=== PATIENT | female | born 1990 | race Caucasian/White ===

== ENCOUNTER 2016-10-27 22:15 | Observation (INO) | payer MEDICARE ==
[~2016-10-27 22:15] MED LIST: FERR324T20 PO
[2016-10-27] MEDS ORDERED: AMPICILLIN 2,000 MG VIAL ONE (23:19)
== END 2016-10-27 22:23 | disposition left against medical advice (07) ==
LOC: MLD 22:15
PROVIDERS: ADMIT Obstetrics & Gynecology; ATTEND Obstetrics & Gynecology
DX: M54.9 Dorsalgia, unspecified (principal)
CPT/HCPCS: G0378; J0290

== ENCOUNTER 2016-11-26 22:38 | Emergency (ER) | payer MEDICARE ==
[~2016-11-26] VITALS: Ht 162.6 cm; Wt 116.6 kg
[2016-11-26 22:47] VITALS: BP 134/90
--- NOTE | 2016-11-26 22:54 | NUR ---
PT TAKEN TO BED 8
--- NOTE | 2016-11-26 22:55 | NUR ---
26Y F BIB FAMILY REQUEST SECOND SCREENING FOR CHLAMYDIA. PT STATES SHE WAS DX FOR CHLAMYIDA AT [facility] [place], [place] YESTERDAY, BUT PT OB STATES BEFORE SHE TAKES THE MEDICATION, TO GET A SECOND SCREENING. PT STATES SHE IS 30 WEEKS HX: PIH, KIDNEY STONES
--- NOTE | 2016-11-26 23:03 | NUR ---
Dr. Bertrand evaluating patient at bedside.
[2016-11-26 23:48] VITALS: BP 128/86
--- NOTE | 2016-11-26 23:48 | NUR ---
Patient discharged with v/s stable. Written and verbal after care instructions given and explained. Patient alert, oriented and verbalized understanding of instructions. Ambulatory with steady gait. All questions addressed prior to discharge. ID band removed. Patient advised to follow up with PMD. NO Rx WERE given. Patient educated on indication of medication including possible reaction and side effects. Opportunity to ask questions provided and answered.
== END 2016-11-26 23:48 | disposition home or self-care (01) ==
LOC: MED 22:38
DX: O98.812 Other maternal infectious and parasitic diseases complicating pregnancy, second trimester (principal); A74.9 Chlamydial infection, unspecified; Z3A.30 30 weeks gestation of pregnancy
CPT/HCPCS: 99283

== ENCOUNTER 2018-10-03 18:16 | Emergency (ER) | payer BC, MEDICARE ==
[~2018-10-03] VITALS: Ht 162.6 cm; Wt 111.6 kg
[2018-10-03 18:27] VITALS: BP 141/94
--- NOTE | 2018-10-03 18:31 | NUR ---
VSS, AMB TO LOBBY
--- NOTE | 2018-10-03 19:50 | NUR ---
PT AMBULATED TO BED 4
--- NOTE | 2018-10-03 20:07 | NUR ---
PATIENT PRESENTS TO ED WITH C/O BLOOD IN URINE. WAS SEEN BY DR ON THURSDAY AND GIVEN MACROBID. PT STATES SHE WANTS TO BE REEVALUATED. BURNING DURING URINATION. REPORTS 14 WEEKS . LMP 07/01/2018. RX: MACROBID HX: DENIES, DENIES N/V/D; SKIN IS PINK/WARM/DRY; AAOX4 WITH EVEN AND STEADY GAIT; LUNGS CLEAR BL; HR EVEN AND REGULAR; PT DENIES ANY FEVER, CP, SOB, OR COUGH AT THIS TIME; PATIENT STATES PAIN OF 0/10 AT THIS TIME; VSS; PATIENT POSITIONED FOR COMFORT; HOB ELEVATED; BEDRAILS UP X2; BED DOWN. ER MD MADE AWARE OF PT STATUS.
[2018-10-03 20:48] LABS: APPEARANCE,URINE CLOUDY (CLEAR); BILIRUBIN,URINE NEGATIVE (NEGATIVE); BLOOD, URINE TRACE-L (NEGATIVE); COLOR,URINE YELLOW (YELLOW); LEUKOCYTE ESTERASE ,URINE 2+ (NEGATIVE); NITRITE, URINE NEGATIVE (NEGATIVE); UGLUCOSE NEGATIVE (NEGATIVE)
[2018-10-03 21:08] LABS: URINE AMORPHOUS URATE 2+ /HPF (None Seen)
[2018-10-03 22:25] VITALS: BP 140/71
--- NOTE | 2018-10-03 22:25 | NUR ---
Pt to continue with previous prescribed antibiotics. Patient discharged with v/s stable. Written and verbal after care instructions given and explained. Patient verbalized understanding. Ambulatory with steady gait. All questions addressed prior to discharge. Advised to follow up with PMD.
== END 2018-10-03 22:25 | disposition home or self-care (01) ==
LOC: MED 18:16
DX: O23.42 Unspecified infection of urinary tract in pregnancy, second trimester (principal); O16.2 Unspecified maternal hypertension, second trimester; Z3A.14 14 weeks gestation of pregnancy; Z90.49 Acquired absence of other specified parts of digestive tract
CPT/HCPCS: 36415; 81001; 81025; 87086; 87491; 99283